=== PATIENT | female | born 1950 | race Caucasian/White ===

== ENCOUNTER 2016-09-10 08:46 | Day surgery (SDC) | payer BC, MEDICARE ==
[~2016-09-10] VITALS: Ht 167.6 cm; Wt 95.3 kg
== END 2016-09-10 10:45 | disposition short-term general hospital (02) ==
LOC: SURGOP 08:46
PROC: 0DJD8ZZ Inspection of Lower Intestinal Tract, Via Natural or Artificial Opening Endoscopic (ICD-10-PCS; principal; 2016-09-10)
DX: Z12.11 Encounter for screening for malignant neoplasm of colon (principal); I10 Essential (primary) hypertension; G47.30 Sleep apnea, unspecified; E78.5 Hyperlipidemia, unspecified; K21.9 Gastro-esophageal reflux disease without esophagitis; M17.9 Osteoarthritis of knee, unspecified; E66.9 Obesity, unspecified; Z68.37 Body mass index [BMI] 37.0-37.9, adult; Z99.89 Dependence on other enabling machines and devices; Z86.010 Personal history of colon polyps; Z88.1 Allergy status to other antibiotic agents; Z88.2 Allergy status to sulfonamides; Z88.8 Allergy status to other drugs, medicaments and biological substances; Z79.2 Long term (current) use of antibiotics; Z79.82 Long term (current) use of aspirin; Z79.899 Other long term (current) drug therapy; Z90.49 Acquired absence of other specified parts of digestive tract; Z98.890 Other specified postprocedural states
CPT/HCPCS: J2175; J2250

== ENCOUNTER → 2016-11-18 | Outpatient (CLI) | payer BC, MEDICARE | END | disposition short-term general hospital (02) | LOC: CLORTH 09:04 | DX: M17.11 Unilateral primary osteoarthritis, right knee (principal); M25.561 Pain in right knee; Z96.652 Presence of left artificial knee joint ==